=== PATIENT | male | born 1975 | race Asian ===

== ENCOUNTER 2019-05-19 08:23 | Emergency (ER) | payer OTHER ==
[~2019-05-19] VITALS: Ht 175.3 cm; Wt 72.0 kg
[2019-05-19] MEDS ORDERED: SODIUM CHLORIDE 0.9% 1,000 ML IV ONE (08:49)
[2019-05-19 09:34] LABS: BASOPHILS % 0.4 % (0.0-2.0); EOSINOPHILS % 1.9 % (0.0-5.0); HEMATOCRIT. 35.2 % (42.0-52.0); HEMOGLOBIN. 11.5 g/dL (14.0-18.0); LYMPHOCYTES % 10.8 % (20.0-50.0); MEAN CORPUSCULAR HEMOGLOBIN 26.7 pg (28.0-32.0); MEAN CORPUSCULAR VOLUME 81.9 fL (80.0-94.0); MEAN PLATELET VOLUME 8.8 fl (7.4-10.4); MONOCYTES % 9.6 % (2.0-8.0); NEUTROPHILS % 77.3 % (40.0-76.0); PLATELET 122 x1000/uL (130-400); RED CELL DISTRIBUTION WIDTH 16.4 % (11.6-14.6)
[2019-05-19 09:36] LABS: CHLORIDE 110 mEq/L (98-107)
[2019-05-19 11:00] VITALS: BP 135/73
== END 2019-05-19 11:00 | disposition home or self-care (01) ==
LOC: ER 08:23
DX: R55 Syncope and collapse (principal); R42 Dizziness and giddiness; K21.9 Gastro-esophageal reflux disease without esophagitis; K74.60 Unspecified cirrhosis of liver; I85.00 Esophageal varices without bleeding; Z98.890 Other specified postprocedural states
CPT/HCPCS: 36415; 71045; 80053; 83880; 84484; 85025; 93005; 96360; 99284; J7030